=== PATIENT | female | born 1990 | race African-American/Black ===

== ENCOUNTER 2017-05-16 00:20 | Emergency (ER) | payer OTHER ==
[~2017-05-16] VITALS: Ht 165.1 cm; Wt 84.4 kg
[~2017-05-16 00:20] MED LIST: MACROBID 100 M100 M1 PO; ONDANSETRON HCL4 M2 PO; PHENERGAN 25 MG25 M1 PO; REGLAN 10 MG TA10 MG PO
[2017-05-16] MEDS ORDERED: CLEOCIN HCL150 MG PO (01:06)
[2017-05-16 04:36] LABS: ALBUMIN 3.5 g/dL (3.4-5.0); ALKALINE PHOSPHATASE 81 U/L (46-116); DIRECT BILIRUBIN < 0.1 mg/dL (<0.1-0.3); SGOT 10 U/L (15-37); SGPT 15 U/L (30-65); TOTAL BILIRUBIN 0.2 mg/dL (<0.1-1.0); TOTAL PROTEIN 7.2 g/dL (6.4-8.2)
[2017-05-16 04:37] LABS: ACETAMINOPHEN < 2 ug/mL (10-30)
[2017-05-16] MEDS ORDERED: NORCO 5-325 TA1 EACH PO (04:39)
[2017-05-16 05:04] VITALS: BP 132/76
== END 2017-05-16 04:45 | disposition home or self-care (01) ==
LOC: ER 00:20
PROVIDERS: Emergency Medicine
DX: K04.7 Periapical abscess without sinus (principal); F17.200 Nicotine dependence, unspecified, uncomplicated; Z88.0 Allergy status to penicillin